=== PATIENT | female | born 1975 | race Caucasian/White ===

== ENCOUNTER 2019-01-31 15:44 | Emergency (ER) | payer OTHER, MEDICAID | END 2019-01-31 19:27 | disposition home or self-care (01) | LOC: FTE 15:44 | DX: S61.211A Laceration without foreign body of left index finger without damage to nail, initial encounter (principal); W26.0XXA Contact with knife, initial encounter; Y92.9 Unspecified place or not applicable | CPT/HCPCS: 12001; 99283-25 ==